=== PATIENT | male | born 2000 | race African-American/Black ===

== ENCOUNTER 2022-05-23 11:17 | Outpatient (CLI) | payer OTHER | END 2022-05-23 11:18 | disposition home or self-care (01) | LOC: NAV RAD 11:17 | PROVIDERS: ATTEND Family Medicine | DX: Z02.71 Encounter for disability determination (principal); M95.5 Acquired deformity of pelvis; M16.11 Unilateral primary osteoarthritis, right hip; Z98.890 Other specified postprocedural states | CPT/HCPCS: 72170 ==